=== PATIENT | female | born 2000 | race Caucasian/White ===

== ENCOUNTER 2025-03-05 09:15 | Emergency (ER) | payer OTHER, SELFPAY ==
[2025-03-05 09:16] VITALS: BP 113/77
[2025-03-05 09:41] LABS: Hematocrit 43.4 % (37.0-47.0); Hemoglobin 13.8 g/dL (12.0-16.0); Mean Corp Hgb Conc. 31.8 g/dL (33.0-37.0); Mean Corpuscular Volume 91.4 fL (81.0-99.0); Platelet Count 174 10^3/uL (130-400); Red Cell Dist. Width 14.3 % (11.5-14.5)
[2025-03-05 09:57] LABS: HCG, Serum Qualitative Screen Negative
[2025-03-05 09:59] LABS: ALT (SGPT) 162 U/L (0-35); AST (SGOT) 66 U/L (14-36); Albumin 4.0 g/dl (3.5-5.0); Alkaline Phosphatase 285 U/L (38-126); Blood Urea Nitrogen 10 mg/dl (7-17); Calcium 9.3 mg/dl (8.4-10.2); Carbon Dioxide 30 mmol/L (22-30); Chloride 104 mmol/L (98-107); Glucose 90 mg/dl (70-99); Potassium 5.2 mmol/L (3.5-5.1); Sodium 139 mmol/L (135-145); Total Protein 7.9 g/dl (6.3-8.2); eGFR > 60.00
[2025-03-05 10:22] LABS: Nucleated Red Blood Cells % 0 %
[2025-03-05 11:03] VITALS: BP 119/75
[2025-03-05] MEDS: NSS 1000 IV (11:58)
[2025-03-05] MEDS: DECADRON 10 MG IV (11:58)
[2025-03-05] MEDS: BENADRYL 25 MG PO (11:58)
[2025-03-05] MEDS: TORADOL 15 MG IV (11:59)
--- NOTE | 2025-03-05 12:04 | ED.GENMED ---
Addendum entered and electronically signed by Parker Abbott Jr., PA-C 03/07/25 08:22:
Patient was contacted about the EBV viral testing that was positive. She will follow-up.
Original Note:
History of Present Illness
General
Chief Complaint: Fatigue
Source: patient and family (Mother at bedside)
Exam Limitations: none
Time Seen by Provider: 03/05/25 11:11
Nursing documentation reviewed up to this point in time: agreed with
History of Present Illness
History of Present Illness:
Patient is a 24-year-old female who presents to the emergency department with 2 months of fatigue and swollen lymph nodes. Patient states that symptoms began initially after Labor Day with fatigue, sore throat, night sweats, myalgias. She has also
developed multiple swollen lymph nodes in the back of her neck. She denies any headaches, productive cough, abdominal pain. She has had intermittent nausea. Symptoms have been waxing waning however sore throat, night sweats, and myalgias have
seemed to improve. She has had persistent fatigue, swollen lymph nodes, and developed rash yesterday across her entire body which is itchy.
Patient has been seen by her primary care and ENT 2 times since onset of symptoms. She has had negative testing for mono, strep, and Lyme disease. She was treated with 3 courses of antibiotics including amoxicillin, azithromycin, and most recently
erythromycin. She has been on a few courses of steroids.
She has also had negative extensive STD testing.
Patient apparently had mono in May 2024.
Review of Systems
Review of Systems
Allergies reviewed?: Yes
All Other Systems: ROS reviewed and negative except as documented in HPI and ROS
Phy Exam
Physical Exam
Physical Exam:
Vitals: Patient's vital signs are stable. Afebrile
General: Patient is well appearing, no acute distress
Skin: Diffuse erythematous maculopapular rash on face, trunk, back, lower extremities
Head: Normocephalic, atraumatic
Eyes: Sclera nonicteric. EOMs intact. No nystagmus.
Throat: Mildly erythematous posterior pharynx with 2+ tonsillar edema, no exudates. Uvula midline. No SCREW SUPERVISOR. No trismus. Handling oral secretions. Clear speech
Neck: Multiple mobile posterior cervical lymphadenopathy, normal ROM, no cervical spine tenderness, no meningismus
Cardiac: Regular rate and rhythm, no murmurs.
Pulm: Normal respiratory effort, no wheezes, rales, rhonchi heard on exam
Abdomen: Abdomen soft and nontender
Extremities: No evidence of cyanosis or edema
Neuro: AAOx3. Grossly intact.
Psychiatric: Normal affect.
Course
Orders/Labs/Results
Orders:
Orders
03/05/25 09:21
Test Result ONCE
03/05/25 09:26
Complete Blood Count/With Diff Urgent
Comprehensive Metabolic Panel Urgent
HCG, Serum Qualitative Screen Urgent
03/05/25 09:29
Monotest Urgent
03/05/25 11:34
Dexamethasone Sod Phosphate [Decadron] 10 mg IV NOW STA
Diphenhydramine [Benadryl] 25 mg PO NOW STA
Ketorolac [Toradol] 15 mg IV NOW STA
03/05/25 11:36
Add On- LAB Urgent
Tests Added?: mono spot
03/05/25 11:37
0.9% Sodium Chloride 1000 ml [Nss] 1,000 ml IV BOLUS
03/05/25 11:51
COVID-19 Antigen Urgent
Source: Nasal Swab
[facility] Guadalupe-Gupta Virus Ab Panel I [S] Urgent
Influenza A+B Rapid Molecular Urgent
KASE[facility] Source: Nasal Swab
Specimen Description:
03/05/25 12:27
Add On- LAB Urgent
Tests Added?: monospot
Abnormal Lab Results
03/05/25 03/05/25
09:29
WBC 13.6 H 10^3/uL
(4.8-10.8)
MCHC 31.8 L g/dL
(33.0-37.0)
Abs Immat Gran (auto) 0.1 H 10^3/uL
(0-0.05)
Absolute Lymphs (auto) 10.5 H 10^3/uL
(1.2-3.4)
Absolute Monos (auto) 0.9 H 10^3/uL
(0.1-0.6)
Immature Gran % 1.0 H %
(0-0.5)
Neutrophils % 13.5 L %
(42.2-75.2)
Lymphocytes % 77.3 H %
(20.5-51.1)
Potassium 5.2 H mmol/L
(3.5-5.1)
AST 66 H U/L
(14-36)
ALT 162 H U/L
(0-35)
Alkaline Phosphatase 285 H U/L
(38-126)
Monoscreen Positive A
(Negative)
03/05/25 09:26
03/05/25 09:26
Vital Signs
Initial and Last Documented VS:
Initial Vital Signs
Temp Pulse Resp BP Pulse Ox
98.8 F 69 18 113/77 98
03/05/25 09:16 03/05/25 09:16 03/05/25 09:16 03/05/25 09:16 03/05/25 09:16
Last Documented Vital Signs
Temp Pulse Resp BP Pulse Ox
98.8 F 61 18 119/75 99
03/05/25 09:16 03/05/25 11:03 03/05/25 11:03 03/05/25 11:03 03/05/25 12:07
MDM/Problems Addressed
Differential Diagnosis Includes:
Not limited to: Viral illness, medication side effect, tickborne illness, acute dehydration, etc.
MDM/Problems Addressed:
24-year-old female presents with two months of fatigue and cervical lymphadenopathy, now with new onset diffuse rash. Symptoms began with a sore throat which has since resolved. She has previously been evaluated by ENT twice, with negative lab
workup including mononucleosis, Lyme disease, and comprehensive STD testing. Treated with multiple courses of antibiotics, most recently erythromycin. ENT has planned tonsillectomy to rule out underlying malignancy.
On ED evaluation, patient is hemodynamically stable and afebrile. Physical exam notable for diffuse erythematous maculopapular rash involving the face, trunk, and extremities. No significant tonsillar hypertrophy or evidence of peritonsillar
abscess. Abdomen benign.
Initial labs show leukocytosis and transaminitis.
Given history of persistent fatigue, sore throat, cervical lymphadenopathy, and now rash, clinical suspicion remains high for infectious mononucleosis. Monospot test added and returned positive. EBV titers and additional viral studies were sent.
Patient received symptomatic treatment in the ED and remained stable throughout. Given her ongoing ENT evaluation and planned tonsillectomy, she was advised to continue with scheduled follow-up for further evaluation and to rule out any possible
underlying malignancy once the acute phase of illness resolves however feel this is less likely.
Supportive care reviewed, including rest, hydration, and avoidance of contact sports due to risk of splenic rupture. Return precautions discussed. Patient understands and is comfortable with the plan.
Chronic conditions affecting care:
N/A
Acute Exacerbation and/or Progression of Chronic Illness:
N/A
*Pulse Oximetry
SaO2: 99
Oxygen Mode of Delivery: Room air
Patient hypoxic: no
*EKG
Interpreted by ED Provider?: NA
*Front Desk Auxiliary Interpretation
Rate: Front Desk Auxiliary- N/A
*Critical Care Note
Total Time (30-74mins, 75-104mins- exclusive of procedures): Not Applicable
Data Reviewed
Review of Other/Old Records Reveals: Labs (Recent lab work from 02/12/2025-mild leukocytosis with lymphocytosis; normal LFTs)
ED Attending Note
-
Portions of this chart may have been created with voice recognition software.� Occasional wrong word or��sound alike� substitutions may have occurred due to the inherent limitations of voice recognition software.
Discharge Plan
Departure
Patient Disposition: Home (Routine Discharge)
Date of Disposition: 03/05/25
Time of Disposition: 13:01
Patient with high blood pressure during this ER visit?: No
Covid-19: Negative COVID-19
Discharge Problem:
Mononucleosis
Instructions: Mononucleosis
Referrals:
Félix Carmona MD [Active, Otology] - Follow up in 5-7 days
Lisa Mcfarland CRNP [Family Provider, General] - Follow up in 5-7 days
Activity Restrictions/Additional Instructions:
RETURN TO THE EMERGENCY DEPARTMENT FOR ANY SEVERE HEADACHE OR NECK PAIN, FEVER, PERSISTENT/WORSENING RASH, SEVERE THROAT SWELLING OR DIFFICULTY BREATHING/SWALLOWING, SEVERE ABDOMINAL PAIN, OR ANY OTHER CONCERNS
- Your monotest was positive today Emergency Department. We have sent EBV antibody testing we will contact you with these results.
- As discussed�your white blood cell count and liver function test were also mildly elevated in the emergency department. This is likely secondary to your acute monoinfection. Please have these rechecked with your primary care to ensure they are
trending down.
- Is important stable hydrated. Get plenty of rest. Take Tylenol and/Motrin as needed comfort. Take Benadryl as needed for rash
- Avoid any activities that put you at increased risk for abdominal trauma as you have risk of an enlarged spleen with mono.
- Follow-up with PCP and ENT for further evaluation/management to ensure your symptoms improve
Monitor your symptoms closely and return to the emergency department with any acute worsening/new symptoms or any other concerns
Interventions
Interventions:
*Risk Screen - Suicide Last Done: 03/05/25 09:16
*General Assessment Last Done: 03/05/25 09:16
*Neglect/Abuse Screening Last Done: 03/05/25 11:02
*ED- Fall Risk Assessment Last Done: 03/05/25 11:02
*ED COVID-19 Vaccine History Last Done: 03/05/25 11:02
*ED Influenza Vaccine History Last Done: 03/05/25 11:02
*Nursing Disposition Last Done: 03/05/25 13:13
Discharge Date and Time
Discharge Date/Time: 03/05/25 13:13
Print Language: STATELESS
[2025-03-05 12:34] LABS: COVID-19 Antigen Negative (Negative)
[2025-03-07 04:39] LABS: EBV-EA (D) Ab IgG 20.0 U/mL (<=8.9); EBV-NA IgG <3.0 U/mL (<=17.9); EBV-VCA IgG Antibodies 85.1 U/mL (<=17.9); EBV-VCA IgM Antibodies >160.0 U/mL (<=35.9)
== END 2025-03-05 13:13 | disposition home or self-care (01) ==
LOC: EMR 09:15
PROVIDERS: Physician Assistant; EMERGENCY PHYSICIAN Student in an Organized Health Care Education/Training Program; FAMILY PHYSICIAN Nurse Practitioner
DX: B27.90 Infectious mononucleosis, unspecified without complication (principal); D72.829 Elevated white blood cell count, unspecified
CPT/HCPCS: 99283; 96374; 96375; 96361; 80053; 84703; 85025; 86308; 86663; 86664; 86665; 87502; 87811